=== PATIENT | male | born 1960 | race American Indian/Alaskan Native ===

== ENCOUNTER 2017-03-30 16:27 | Inpatient (IN) | payer MEDICARE, OTHER ==
[2017-03-30] MEDS ORDERED: NACL 0.9% 1000 ML 1,000 ML IV ONE ×2 (16:32→19:06)
[2017-03-30] MEDS ORDERED: ASPIRIN ONE (16:39)
--- NOTE | 2017-03-30 16:40 | Emergency Department Report ---
ED Chest Pain HPI - General Chief Complaint: Chest Pain Stated Complaint: ELEVATED HEART RATE Time Seen by Provider: 03/30/17 16:31 - History of Present Illness Initial Comments: 57-year-old male with no medical history severe with sudden onset tachycardia. 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 [place] his heart start to race. That point 911 was called and he had some chest tightness with his symptoms. [place] states feels okay although his chest tightness has continued. He remains tachycardic. EMS gave the patient 6 mg and 12 mg of adenosine without resolution of his tachycardia. -: Sudden Onset: during rest Pain Location: substernal Pain Radiation: none Severity: moderate Consistency: constant Improves With: nothing Worsens With: nothing re: denies: nausea, vomting, diaphoresis - Related Data Home Medications Medication Instructions Recorded Confirmed Last Taken Multivitamin/Ferrous Sulfate 18 mg PO DAILY 03/30/17 03/30/17 03/30/17 [One-Daily Yvcdk-Lbe-Ujnt Tab] Allergies Allergy/AdvReac Type Severity Reaction Status Date / Time No Known Allergies Allergy Unverified 07/19/16 10:25 Heart Score - HEART Score History: Moderately suspicious EKG: Non-specific Age: 45-65 Risk factors: 1-2 risk factors Troponin: < normal limit HEART Score: 4 ED Review of Systems ROS: Stated complaint: ELEVATED HEART RATE Other details as noted in HPI Comment: All other systems reviewed and negative Constitutional: denies: chills, fever Eyes: denies: eye pain, eye discharge, vision change ENT: denies: ear pain, throat pain Respiratory: denies: cough, shortness of breath, wheezing Cardiovascular: chest pain. denies: palpitations Endocrine: no symptoms reported Gastrointestinal: denies: abdominal pain, nausea, diarrhea Genitourinary: denies: urgency, dysuria Musculoskeletal: denies: back pain, joint swelling, arthralgia Skin: denies: rash, lesions Neurological: denies: headache, weakness, paresthesias Psychiatric: denies: anxiety, depression Hematological/Lymphatic: denies: easy bleeding, easy bruising ED Past Medical Hx - Past Medical History Previous Medical History?: No - Family History Family history: no significant - Medications Home Medications: Home Medications Medication Instructions Recorded Confirmed Last Taken Type Multivitamin/Ferrous Sulfate 18 mg PO DAILY 03/30/17 03/30/17 03/30/17 History [One-Daily Reakf-Fyl-Hchs Tab] ED Physical Exam - General General appearance: alert, in no apparent distress - Head Head exam: Present: atraumatic, normocephalic - Eye Eye exam: Present: normal appearance - ENT ENT exam: Present: mucous membranes moist - Neck Neck exam: Present: normal inspection - Respiratory Respiratory exam: Present: normal lung sounds bilaterally. Absent: respiratory distress - Cardiovascular Cardiovascular Exam: Present: normal rhythm, tachycardia. Absent: systolic murmur, diastolic murmur, rubs, gallop - GI/Abdominal GI/Abdominal exam: Present: soft, normal bowel sounds. Absent: distended, guarding, rebound - Rectal Rectal exam: Present: deferred - Extremities Exam Extremities exam: Present: normal inspection - Back Exam Back exam: Present: normal inspection - Neurological Exam Neurological exam: Present: alert, oriented X3 - Psychiatric Psychiatric exam: Present: normal affect, normal mood - Skin Skin exam: Present: warm, dry, intact, normal color. Absent: rash ED Course Vital Signs 03/30/17 03/30/17 03/30/17 16:24 16:26 16:28 Temperature Pulse Rate 159 H 158 H 158 H Respiratory 12 16 22 Rate Blood Pressure 112/75 112/75 Blood Pressure [Right] O2 Sat by Pulse Oximetry 03/30/17 03/30/17 03/30/17 16:29 16:30 16:31 Temperature 98.0 F Pulse Rate 158 H 160 H 160 H Respiratory 19 14 14 Rate Blood Pressure 112/75 118/73 108/67 Blood Pressure 112/75 [Right] O2 Sat by Pulse 97 Oximetry 03/30/17 03/30/17 03/30/17 16:32 16:34 16:36 Temperature Pulse Rate 158 H 156 H 159 H Respiratory 20 15 20 Rate Blood Pressure 108/67 108/67 108/67 Blood Pressure [Right] O2 Sat by Pulse Oximetry 03/30/17 03/30/17 03/30/17 16:38 16:42 16:44 Temperature Pulse Rate 159 H 120 H 102 H Respiratory 28 H 25 H 20 Rate Blood Pressure 108/67 108/67 108/67 Blood Pressure [Right] O2 Sat by Pulse Oximetry 03/30/17 03/30/17 03/30/17 16:45 16:46 16:48 Temperature 97.0 F L Pulse Rate 105 H 105 H 105 H Respiratory 13 15 17 Rate Blood Pressure 101/77 101/77 101/77 Blood Pressure [Right] O2 Sat by Pulse 97 Oximetry 03/30/17 03/30/17 03/30/17 16:50 16:52 16:54 Temperature Pulse Rate 103 H 103 H 102 H Respiratory 11 L 17 16 Rate Blood Pressure 101/77 101/77 101/77 Blood Pressure [Right] O2 Sat by Pulse Oximetry 03/30/17 03/30/17 03/30/17 16:56 16:58 17:00 Temperature Pulse Rate 103 H 100 H 103 H Respiratory 11 L 9 L 16 Rate Blood Pressure 101/77 101/77 101/77 Blood Pressure [Right] O2 Sat by Pulse Oximetry 03/30/17 03/30/17 03/30/17 17:02 17:04 17:06 Temperature Pulse Rate 100 H 103 H 99 H Respiratory 16 22 17 Rate Blood Pressure 108/74 108/74 108/74 Blood Pressure [Right] O2 Sat by Pulse Oximetry 03/30/17 03/30/17 03/30/17 17:08 17:10 17:15 Temperature Pulse Rate 100 H 105 H 103 H Respiratory 15 12 13 Rate Blood Pressure 108/74 108/74 Blood Pressure [Right] O2 Sat by Pulse Oximetry 03/30/17 03/30/17 03/30/17 17:23 17:25 17:27 Temperature Pulse Rate 106 H 109 H 102 H Respiratory 18 16 14 Rate Blood Pressure Blood Pressure [Right] O2 Sat by Pulse Oximetry 03/30/17 03/30/17 03/30/17 17:29 17:31 17:33 Temperature Pulse Rate 103 H 103 H 107 H Respiratory 23 18 14 Rate Blood Pressure 108/74 108/74 Blood Pressure [Right] O2 Sat by Pulse Oximetry ED Medical Decision Making - Lab Data Result diagrams: 03/30/17 17:40 03/30/17 17:40 Laboratory Results - last 24 hr 03/30/17 03/30/17 03/30/17 17:40 17:40 17:40 WBC 6.7 RBC 5.33 H Hgb 14.7 Hct 46.3 H MCV 87 MCH 28 MCHC 32 RDW 16.0 H Plt Count 208 Lymph % (Auto) 14.2 [place] % (Auto) 7.5 H Eos % (Auto) 0.7 Baso % (Auto) 0.4 Lymph # 0.9 L [place] # 0.5 Eos # 0.0 Baso # 0.0 Seg Neutrophils % 77.2 H Seg Neutrophils # 5.2 PT 15.8 H INR 1.20 H Sodium 136 L Potassium 4.7 Chloride 92.3 L Carbon Dioxide 16 L Anion Gap 32 BUN 10 Creatinine 1.1 Estimated GFR > 60 BUN/Creatinine Ratio 9.09 Glucose 498 H Calcium 8.7 Total Bilirubin 0.40 AST 30 ALT 23 Alkaline Phosphatase 96 Troponin T < 0.010 Total Protein 6.9 Albumin 4.1 Albumin/Globulin Ratio 1.5 - EKG Data -: EKG Interpreted by Me - EKG Data 03/30/17 16:42 Rate 160, axis subtle ST depression in his inferior lateral leads. 03/30/17 16:51 Second EKG sinus tach rate 120 normal axis normal intervals still with subtle lateral ST depression in leads V5 and V6. - Medical Decision Making Patient was 57-year-old male here with complaint of tachycardia and chest pain. Patient what appears to be SVT on arrival. Given 6 mg and 12 mg of adenosine without resolution of his symptoms by EMS. Here in the emergency department he was given 12 mg and then 18 mg of adenosine with resolution of his SVT. He is currently in a sinus rhythm. Plan admit the patient for cardiac workup given his chest pain with this episode. Stress test with Dr. Briscoe. Plan to admit the patient to the hospital for further chest pain workup. After being labs I noted that the patient was hyperglycemic. No history of diabetes. Plan to start fluids and will give him a dose of insulin. He has a fairly substantial and anion gap. This is likely a new diagnosis. Portions of this chart were dictated with dictation software. There may be dictation errors contained within this note. Critical Care Time: Yes Critical care attestation.: If time is entered above; I have spent that time in minutes in the direct care of this critically ill patient, excluding procedure time. ED Disposition Clinical Impression: Supraventricular tachycardia, Hyperglycemia, Chest pain Disposition: OP ADMIT IP TO THIS HOSP Is pt being admited?: Yes Condition: Serious Instructions: Chest Pain (ED)
[2017-03-30] MEDS ORDERED: ASPIRIN PO ONE (17:39)
[2017-03-30 17:58] LABS: Basophils % (Auto) 0.4 % (0.0-1.8); Eosinophils % (Auto) 0.7 % (0.0-4.3); Hematocrit 46.3 % (35.5-45.6); Hemoglobin 14.7 gm/dl (11.8-15.2); Mean Corpuscular HGB Conc 32 % (32-34); Mean Corpuscular Hemoglobin 28 pg (28-32); Mean Corpuscular Volume 87 fl (84-94); Platelet Count 208 K/mm3 (140-440); Red Blood Count 5.33 M/mm3 (3.65-5.03); White Blood Count 6.7 K/mm3 (4.5-11.0)
[2017-03-30 18:08] LABS: INR 1.2 (0.87-1.13)
[2017-03-30 18:25] LABS: Albumin 4.1 g/dL (3.9-5); Albumin/Globulin Ratio 1.5 %; Alkaline Phosphatase 96 units/L (35-129); BUN/Creatinine Ratio 9.09; Blood Urea Nitrogen 10 mg/dL (9-20); Calcium 8.7 mg/dL (8.4-10.2); Carbon Dioxide 16 mmol/L (22-30); Chloride 92.3 mmol/L (98-107); Glucose 498 mg/dL (75-100); Sodium 136 mmol/L (137-145); Total Protein 6.9 g/dL (6.3-8.2)
[2017-03-30 18:35] LABS: Alanine Aminotransferase 23 units/L (7-56); Anion Gap 32 mmol/L; Potassium 4.7 mmol/L (3.6-5.0)
--- NOTE | 2017-03-30 18:37 | Admit Criteria Form ---
Admission Criteria Documentation: TELEMETRY CARE Telemetry Admission Guidelines (Place 'X' for any and all applicable criteria): Admission to telemetry [A] may be indicated for ANY ONE of the following(1)(2)(3 )(4)(5): [X ]I. Cardiac disease, including ANY ONE of the following (9)(10)(11)(12)( 13): [ ]a) Postacute IL [ ]b) Low-risk patients with ST-segment elevation IL who have undergone successful percutaneous coronary intervention [ ]c) Unstable angina [ ]d) Suspected IL (until it is ruled out) [ ]e) Post cardiac surgery (first 48 to 72 hours unless complications occur) [X ]f) Acute arrhythmias (including significant tachycardia or bradycardia) [B] [ ]g) Firing of an implantable cardioverter defibrillator [C] [ ]h) Suspected pacemaker or implantable cardioverter defibrillator malfunction (10) [ ]i) New administration or adjustment of an antiarrhythmic drug [D ] [ ]j) Child admitted for acute congestive heart failure [ ]j) Long QT syndrome [ ]k) Advanced heart block (eg, second-degree Mobitz type II, third- degree heart block) [ ]l) Acute myocarditis or pericarditis [ ]m) Short-term (ambulatory or inpatient) monitoring after a cardiac procedure as indicated by ANY ONE of the following [E]: [ ]i) Electrophysiologic studies [ ]ii) Percutaneous coronary intervention with stent placement [ ]iii) Pacemaker placement with cardiac conduction defect [ ]iv) Implantable cardiac defibrillator placement [ ]II. Drug overdose or poisoning with substance that causes arrhythmias or QT prolongation (eg, phenothiazines, sympathomimetic agents, cyclic antidepressants, digitalis, antiarrhythmic drugs)(15) [ ]III. Short-term (ambulatory or inpatient) monitoring after therapeutic or diagnostic procedure requiring conscious sedation or anesthesia (eg, endoscopy, elective cardioversion) [ ]IV. Acute cerebrovascular even[F](18) [ ]V. Massive blood transfusion (eg, at least 10 units of packed red blood cells in 24 hours) [ ]. Variceal bleeding after endoscopy, sclerotherapy, or IV vasopressin [ ]VII. Uncorrected electrolyte abnormalities associated with an increased risk of dangerous arrhythmia [G]; examples include [ ]a) Hyperkalemia with attributable ECG changes [ ]b) Potassium greater than 6.5 mmol/L (mEq/L) in a patient without history of chronic renal disease [ ]c) Prolonged QT attributed to hypokalemia, hypomagnesemia, or hypocalcemia [ ]VIII.Unexplained syncope or other neurologic event suspected of being due to arrhythmia due to a finding that increases risk; examples include(19)(20)(21): [ ]a) High-risk ECG findings (eg, bifascicular block, bradycardia, abnormal QT interval, ventricular pre- excitation) [ ]b) History of previous syncope due to arrhythmia [ ]c) Abnormal ventricular function (eg, reduced ejection fraction ) [ ]d) Exertional or supine syncope [ ]e) Concerning syncope characteristics (eg, sudden loss of consciousness without prodrome) [ ]f) Family history of sudden [ ]g) Use of arrhythmogenic medication [ ]h) Suspected cardiac ischemia [ ]i) Known channelopathy (eg, long QT syndrome, Brugada syndrome, or catecholaminergic paroxysmal ventricular tachycardia) [ ]j) Known structural heart disease (eg, hypertrophic cardiomyopathy , severe valvular disease) [ ]k) Palpitations preceding syncope The original [employer] content created by [employer] has been revised. The portions of the content which have been revised are identified through the use of italic text or in bold, and [facility] has neither reviewed nor approved the modified material. All other unmodified content is copyright [employer]. Please see references footnoted in the original [employer] edition 2016 Admission Criteria Met: Yes
[2017-03-30] MEDS ORDERED: ZOFRAN IV PRN ×2 (18:41→18:44)
[2017-03-30] MEDS ORDERED: MILK OF MAGNESIA PO PRN ×2 (18:41→18:44)
[2017-03-30] MEDS ORDERED: DULCOLAX PR PRN ×2 (18:41→18:44)
[2017-03-30] MEDS ORDERED: TYLENOL PO PRN ×2 (18:41→18:44)
[2017-03-30] MEDS ORDERED: SODIUM CHLORIDE FLUSH SYRINGE 10 ML IV PRN (18:45)
--- NOTE | 2017-03-30 18:51 | History and Physical Report ---
History of Present Illness Chief complaint: My heart was beating fast and my chest was hurting History of present illness: 57 Yo Male with Obesity presents to ED for evaluation. Pt states that he experienced acute onset chest pain and palpitations today while at work. 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 Pt states that he also experienced acute onset pain in his chest. Pain 5/10, substernal, nonradiating, not worsened with exertion, or relieved with rest. Pt denies fever, chills, shortness of breath, back pain, syncope, productive cough, recent ill contacts. EMS notified, and upon arrival patient found to have SVT. EMS gave the patient 6 mg and 12 mg of adenosine with resolution of his tachycardia. Past History Past Medical History: other (obesity) Past Surgical History: No surgical history, Other (reviewed) Social history: , lives with family. denies: smoking, alcohol abuse, prescription drug abuse, IV drug use Family history: hypertension Medications and Allergies Allergies Allergy/AdvReac Type Severity Reaction Status Date / Time No Known Allergies Allergy Unverified 07/19/16 10:25 Home Medications Medication Instructions Recorded Confirmed Last Taken Type Multivitamin/Ferrous Sulfate 18 mg PO DAILY 03/30/17 03/30/17 03/30/17 History [One-Daily Pgqic-Mcs-Yocz Tab] Active Meds: Active Medications Acetaminophen (Tylenol) 650 mg PO Q4H PRN PRN Reason: Pain MILD(1-3)/Fever >100.5/ELENA Acetaminophen (Tylenol) 650 mg PO Q4H PRN PRN Reason: Pain MILD(1-3)/Fever >100.5/ELENA Bisacodyl (Dulcolax) 10 mg FL QDAY PRN PRN Reason: Constipation unrelieved by MOM Bisacodyl (Dulcolax) 10 mg FL QDAY PRN PRN Reason: Constipation unrelieved by MOM Magnesium Hydroxide (Milk Of Magnesia) 30 ml PO Q4H PRN PRN Reason: Constipation Magnesium Hydroxide (Milk Of Magnesia) 30 ml PO Q4H PRN PRN Reason: Constipation Ondansetron HCl (Zofran) 4 mg IV Q8H PRN PRN Reason: N/V unrelieved by Reglan Ondansetron HCl (Zofran) 4 mg IV Q8H PRN PRN Reason: N/V unrelieved by Reglan Sodium Chloride (Sodium Chloride Flush Syringe 10 Ml) 10 ml IV PRN PRN PRN Reason: LINE FLUSH Verapamil HCl (Calan) 40 mg PO Q8HR [facility] Review of Systems Constitutional: no weight loss, no weight gain, no fever, no chills Ears, nose, mouth and throat: no ear pain, no ear discharge, no tinnitis, no decreased hearing Cardiovascular: chest pain, palpitations, no syncope, no lightheadedness, no shortness of breath Respiratory: no cough, no cough with sputum, no excessive sputum, no hemoptysis Gastrointestinal: no abdominal pain, no nausea, no vomiting, no diarrhea Genitourinary Male: no hematuria, no flank pain, no discharge, no urinary frequency Rectal: no pain, no incontinence, no bleeding Musculoskeletal: no neck stiffness, no neck pain, no shooting arm pain, no arm numbness/tingling, no low back pain Integumentary: no rash, no pruritis, no redness, no sores Neurological: no transient paralysis, no paralysis, no weakness, no parathesias , no numbness Psychiatric: no anxiety, no memory loss, no change in sleep habits, no sleep disturbances, no insomnia Endocrine: no cold intolerance, no heat intolerance, no polyphagia, no excessive thirst Hematologic/Lymphatic: no easy bruising, no easy bleeding Allergic/Immunologic: no urticaria, no allergic rhinitis, no wheezing Exam - Constitutional Vitals: Temp Pulse Resp BP Pulse Ox 97.0 F L 107 H 14 108/74 97 03/30/17 16:45 03/30/17 17:33 03/30/17 17:33 03/30/17 17:33 03/30/17 16:45 General appearance: Present: mild distress, obese - EENT Eyes: Present: PERRL ENT: hearing intact, clear oral mucosa - Neck Neck: Present: supple, normal ROM - Respiratory Respiratory effort: normal Respiratory: bilateral: CTA - Cardiovascular Heart Sounds: Present: S1 & S2. Absent: rub, click - Extremities Extremities: pulses symmetrical, No edema Peripheral Pulses: within normal limits - Abdominal General gastrointestinal: Present: soft, non-tender, non-distended, normal bowel sounds Male genitourinary: Present: normal - Integumentary Integumentary: Present: clear, warm, dry - Musculoskeletal Musculoskeletal: gait normal, strength equal bilaterally - Psychiatric Psychiatric: appropriate mood/affect, intact judgment & insight - Neurologic Neurologic: CNII-XII intact, moves all extremities Results - Labs CBC & Chem 7: 03/30/17 17:40 03/30/17 Unknown Labs: Abnormal lab results 03/30/17 03/30/17 03/30/17 Range/Units 17:40 17:40 17:40 RBC 5.33 H (3.65-5.03) M/mm3 Hct 46.3 H (35.5-45.6) % RDW 16.0 H (13.2-15.2) % [place] % (Auto) 7.5 H (0.0-7.3) % Lymph # 0.9 L (1.2-5.4) K/mm3 Seg Neutrophils % 77.2 H (40.0-70.0) % PT 15.8 H (12.2-14.9) Sec. INR 1.20 H (0.87-1.13) Sodium 136 L (137-145) mmol/L Chloride 92.3 L (98-107) mmol/L Carbon Dioxide 16 L (22-30) mmol/L Glucose 498 H (75-100) mg/dL Assessment and Plan - Patient Problems (1) ACS (acute coronary syndrome) Current Visit: Yes Status: Acute Plan to address problem: Serial cardiac enzymes, ekg, telemetry, supportive care, cardiology consulted, echo, start verapamil (2) Hyponatremia syndrome Current Visit: Yes Status: Acute Plan to address problem: IVF replacement. (3) Obesity Current Visit: Yes Status: Acute Qualifiers: Obesity type: O Obesity classification: O Serious obesity comorbidity presence: S Body mass index: B (4) Supraventricular tachycardia Current Visit: Yes Status: Acute Plan to address problem: verapamil, cardiology consulted, supportive care, (5) DVT prophylaxis Current Visit: Yes Status: Acute
[2017-03-30 19:49] LABS: BUN/Creatinine Ratio 9.09; Blood Urea Nitrogen 10 mg/dL (9-20); Calcium 8.8 mg/dL (8.4-10.2); Carbon Dioxide 14 mmol/L (22-30); Chloride 93.7 mmol/L (98-107); Glucose 488 mg/dL (75-100); Sodium 138 mmol/L (137-145)
[2017-03-30 20:03] LABS: Anion Gap 35 mmol/L
[2017-03-30 20:04] LABS: Potassium 4.8 mmol/L (3.6-5.0)
[2017-03-30] MEDS: CALAN PO SCH (22:19)
[2017-03-30] MEDS ORDERED: D50W (25GM) Syringe IV PRN (22:30)
[2017-03-31] MEDS: CALAN PO SCH ×3 (05:14→22:35)
--- NOTE | 2017-03-31 07:39 | XRay Report ---
AP CHEST: HISTORY: chest pain AP view of the chest demonstrates a normal mediastinal and cardiac contour with clear lungs and normal bony and soft tissue structures. IMPRESSION: Unremarkable AP chest.
[2017-03-31] MEDS: NOVOLOG SUB-Q SCH ×4 (10:01→22:35)
[2017-03-31] MEDS ORDERED: Fluarix Quad 2017-2018(36 MOS+) IM ONE (12:00)
--- NOTE | 2017-03-31 13:40 | Consultation ---
History of Present Illness Consult date: 03/31/17 Consult reason: arrhythmia History of present illness: This is a 57yr old male who was brought in by EMS with palpitations. An ECG done shows atrial flutter with a rapid ventricular response. Patient was also found hyperglycemic with a serum glucose of 499 on initial labs. Patient denies prior medical history. Patient does not take any medication and does not have a primary care physician. Patient denies consumption of energy drinks, alcohol or substance abuse. He has since reverted to a stable sinus rhythm. Cardiac consultation requested. Past History Past Medical History: other (obesity) Past Surgical History: No surgical history, Other (reviewed) Social history: , lives with family. denies: smoking, alcohol abuse, prescription drug abuse, IV drug use Family history: hypertension Medications and Allergies Allergies Allergy/AdvReac Type Severity Reaction Status Date / Time No Known Allergies Allergy Unverified 07/19/16 10:25 Home Medications Medication Instructions Recorded Confirmed Last Taken Type Multivitamin/Ferrous Sulfate 18 mg PO DAILY 03/30/17 03/30/17 03/30/17 History [One-Daily Gqotp-Dll-Heqn Tab] Active Meds: Active Medications Acetaminophen (Tylenol) 650 mg PO Q4H PRN PRN Reason: Pain MILD(1-3)/Fever >100.5/ELENA Bisacodyl (Dulcolax) 10 mg RI QDAY PRN PRN Reason: Constipation unrelieved by MOM Dextrose (D50w (25gm)) 50 ml IV PRN PRN PRN Reason: Hypoglycemia Insulin Aspart (Novolog) 0 units SUB-Q ACHS ANI PRN Reason: Protocol Last Admin: 03/31/17 12:52 Dose: 4 units Insulin Human Isoph/Insulin Regular (Novolin 70/30) 15 unit SUB-Q BIDDIAB ANI Magnesium Hydroxide (Milk Of Magnesia) 30 ml PO Q4H PRN PRN Reason: Constipation Ondansetron HCl (Zofran) 4 mg IV Q8H PRN PRN Reason: N/V unrelieved by Reglan Sodium Chloride (Sodium Chloride Flush Syringe 10 Ml) 10 ml IV PRN PRN PRN Reason: LINE FLUSH Verapamil HCl (Calan) 40 mg PO Q8HR [facility] Last Admin: 03/31/17 05:14 Dose: Not Given Physical Examination Vital Signs Pulse Resp 159 H 12 03/30/17 16:24 08/23/17 16:24 General appearance: no acute distress HEENT: Positive: PERRL Neck: Positive: trachea midline Cardiac: Positive: Reg Rate and Rhythm Lungs: Positive: Decreased Breath Sounds Neuro: Positive: Grossly Intact Results 03/30/17 17:40 03/30/17 Unknown Lipids 03/30/17 Range/Units Unknown Triglycerides 163 H (2-149) mg/dL Cholesterol 165 (50-199) mg/dL HDL Cholesterol 41 (40-59) mg/dL Cholesterol/HDL Ratio 4.02 % Comprehensive Metabolic Panel 03/30/17 Range/Units Unknown Sodium 138 (137-145) mmol/L Potassium 4.8 (3.6-5.0) mmol/L Chloride 93.7 L (98-107) mmol/L Carbon Dioxide 14 L (22-30) mmol/L BUN 10 (9-20) mg/dL Creatinine 1.1 (0.8-1.5) mg/dL Glucose 488 H (75-100) mg/dL Calcium 8.8 (8.4-10.2) mg/dL Assessment and Plan Atrial flutter spontaneously reverted to a sinus rhythm on calan for suppression. normal TSH Diabetes Hbg A1c 17.2 EF 55-60% on echocardiogram. Plan: Pre-discharge thallium stress test for further cardiac evaluation. Management of his diabetes per medical team.
--- NOTE | 2017-03-31 14:47 | Progress Note ---
Assessment and Plan Assessment and plan: 57 Yo Male with Obesity presents to ED for evaluation. Pt states that he experienced acute onset chest pain and palpitations today while at work. 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 Pt states that he also experienced acute onset pain in his chest. Pain 5/10, substernal, nonradiating, not worsened with exertion, or relieved with rest. Pt denies fever, chills, shortness of breath, back pain, syncope, productive cough, recent ill contacts. EMS notified, and upon arrival patient found to have SVT. EMS gave the patient 6 mg and 12 mg of adenosine with resolution of his tachycardia. Atypical chest pain * Stress test today, pain likely as a result of SVT. * ASA, STATIN THERAPY SVT with possible Atrial flutter * Cardiology following * Asa NOTED ABOVE * Continue verapamil * CHADS 2 SCORE OF 1- ASA only New onset Diabetes mellitus * Diabetic education * insulin therapy * AIC >17 * Yearly eye and feet exam recommended METABOLIC SYNDROME * Weightloss modality discussed in detail OBESITY * NOTED ABOVE. DVT/GI PROPHY History Interval history: Patient seen and examined, in no acute distress. Denies any nausea, vomiting or diarrhea, still with mild chest discomfort Hospitalist Physical - Constitutional Vitals: Temp Pulse Resp BP Pulse Ox 98.9 F 68 18 108/70 98 03/31/17 13:52 03/31/17 13:52 03/31/17 13:52 03/31/17 13:52 03/31/17 13:52 General appearance: Present: no acute distress, well-nourished, obese - EENT Eyes: Present: PERRL, EOM intact ENT: hearing intact, clear oral mucosa - Neck Neck: Present: supple, normal ROM - Respiratory Respiratory effort: normal Respiratory: bilateral: CTA - Cardiovascular Rhythm: regular Heart Sounds: Present: S1 & S2 - Extremities Extremities: no ischemia, pulses intact, pulses symmetrical, No edema, normal temperature, normal color, Full ROM Peripheral Pulses: within normal limits - Abdominal General gastrointestinal: soft, non-tender, non-distended, normal bowel sounds - Integumentary Integumentary: Present: clear, warm, dry - Psychiatric Psychiatric: appropriate mood/affect, intact judgment & insight, memory intact, cooperative - Neurologic Neurologic: CNII-XII intact, moves all extremities - Allied Health Allied health notes reviewed: nursing Results - Labs CBC & Chem 7: 03/30/17 17:40 03/30/17 Unknown Labs: Laboratory Last Values WBC 6.7 K/mm3 (4.5-11.0) 03/30/17 17:40 RBC 5.33 M/mm3 (3.65-5.03) H 03/30/17 17:40 Hgb 14.7 gm/dl (11.8-15.2) 03/30/17 17:40 Hct 46.3 % (35.5-45.6) H 03/30/17 17:40 MCV 87 fl (84-94) 03/30/17 17:40 MCH 28 pg (28-32) 03/30/17 17:40 MCHC 32 % (32-34) 03/30/17 17:40 RDW 16.0 % (13.2-15.2) H 03/30/17 17:40 Plt Count 208 K/mm3 (140-440) 03/30/17 17:40 Lymph % (Auto) 14.2 % (13.4-35.0) 03/30/17 17:40 Reynolds % (Auto) 7.5 % (0.0-7.3) H 03/30/17 17:40 Eos % (Auto) 0.7 % (0.0-4.3) 03/30/17 17:40 Baso % (Auto) 0.4 % (0.0-1.8) 03/30/17 17:40 Lymph # 0.9 K/mm3 (1.2-5.4) L 03/30/17 17:40 Reynolds # 0.5 K/mm3 (0.0-0.8) 03/30/17 17:40 Eos # 0.0 K/mm3 (0.0-0.4) 03/30/17 17:40 Baso # 0.0 K/mm3 (0.0-0.1) 03/30/17 17:40 Seg Neutrophils % 77.2 % (40.0-70.0) H 03/30/17 17:40 Seg Neutrophils # 5.2 K/mm3 (1.8-7.7) 03/30/17 17:40 PT 15.8 Sec. (12.2-14.9) H 03/30/17 17:40 INR 1.20 (0.87-1.13) H 03/30/17 17:40 Sodium 138 mmol/L (137-145) 03/30/17 Unknown Potassium 4.8 mmol/L (3.6-5.0) 03/30/17 Unknown Chloride 93.7 mmol/L (98-107) L 03/30/17 Unknown Carbon Dioxide 14 mmol/L (22-30) L 03/30/17 Unknown Anion Gap 35 mmol/L 03/30/17 Unknown BUN 10 mg/dL (9-20) 03/30/17 Unknown Creatinine 1.1 mg/dL (0.8-1.5) 03/30/17 Unknown Estimated GFR > 60 ml/min 03/30/17 Unknown BUN/Creatinine Ratio 9.09 % 03/30/17 Unknown Glucose 488 mg/dL (75-100) H 03/30/17 Unknown POC Glucose 226 (70-105) H 03/31/17 09:42 Hemoglobin A1c 17.2 % (4-6) H 03/30/17 17:40 Calcium 8.8 mg/dL (8.4-10.2) 03/30/17 Unknown Magnesium 2.00 mg/dL (1.7-2.3) 03/31/17 13:43 Total Bilirubin 0.40 mg/dL (0.1-1.2) 03/30/17 17:40 AST 30 units/L (5-40) 03/30/17 17:40 ALT 23 units/L (7-56) 03/30/17 17:40 Alkaline Phosphatase 96 units/L (35-129) 03/30/17 17:40 Troponin T < 0.010 ng/mL (0.00-0.029) 03/31/17 00:27 Total Protein 6.9 g/dL (6.3-8.2) 03/30/17 17:40 Albumin 4.1 g/dL (3.9-5) 03/30/17 17:40 Albumin/Globulin Ratio 1.5 % 03/30/17 17:40 Triglycerides 163 mg/dL (2-149) H 03/30/17 Unknown Cholesterol 165 mg/dL (50-199) 03/30/17 Unknown LDL Cholesterol Direct 92 mg/dL (50-130) 03/30/17 Unknown HDL Cholesterol 41 mg/dL (40-59) 03/30/17 Unknown Cholesterol/HDL Ratio 4.02 % 03/30/17 Unknown TSH 1.920 mlU/mL (0.270-4.200) 03/31/17 13:43 - Imaging and Cardiology Chest x-ray: image reviewed (unremarkable)
[2017-04-01 04:52] VITALS: BP 97/68
[2017-04-01] MEDS: CALAN PO SCH (05:12)
[2017-04-01] MEDS: NOVOLOG SUB-Q SCH ×2 (07:56→12:16)
--- NOTE | 2017-04-01 09:20 | Discharge Summary ---
Providers - Providers Date of Admission: 03/30/17 18:41 Attending physician: DANUTA OH MD 03/30/17 Consult to Cardiac Rehabilitation [CONS] Routine Reason For Exam: Phase I 03/30/17 18:44 Consult to Physician [CONS] Routine Consulting Provider: SUSAN CHOI Reason For Exam: svt Place consult to:: cardiology Notified:: [email or web address] Was contact made?: Yes Time called:: 10:12 Primary care physician: [employer] Hospitalization Reason for admission: chest pain Condition: Stable Hospital course: 57 Yo Male with Obesity presents to ED for evaluation. Pt states that he experienced acute onset chest pain and palpitations today while at work. 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 Pt states that he also experienced acute onset pain in his chest. Pain 5/10, substernal, nonradiating, not worsened with exertion, or relieved with rest. Pt denies fever, chills, shortness of breath, back pain, syncope, productive cough, recent ill contacts. EMS notified, and upon arrival patient found to have SVT. EMS gave the patient 6 mg and 12 mg of adenosine with resolution of his tachycardia. Atypical chest pain * Stress test Was negative. * ASA started and to continue on discharge SVT with possible Atrial flutter * will follow with cardiolgy * Continue verapamil * CHADS 2 SCORE OF 1- ASA only New onset Diabetes mellitus * Diabetic education * insulin therapy on discharge with Novolin 70/30 * AIC >17 * Yearly eye and feet exam recommended and patient verbalized understanding. FOOT CARE DISCUSSED. METABOLIC SYNDROME * Weightloss modality discussed in detail WITH RECOMMENDATIONS ABOUT INCREASING ACTIVITY OBESITY * NOTED ABOVE. Disposition: DC-01 TO HOME OR SELFCARE Time spent for discharge: 35 mins Core Measure Documentation - Palliative Care Palliative Care/ Comfort Measures: Not Applicable - Core Measures Any of the following diagnoses?: none - VTE Discharge Requirements Deep Vein Thrombosis/Pulmonary Embolism Present on Admission: No Exam - Physical Exam Narrative exam: VITAL SIGNS: Reviewed. GENERAL: The patient appeared well nourished and normally developed, OBESE. Vital signs as documented. HEAD: No signs of head trauma. EYES: Pupils are equal. Extraocular motions intact. EARS: Hearing grossly intact. MOUTH: Oropharynx is normal. NECK: No adenopathy, no JVD. CHEST: Chest with clear breath sounds bilaterally. No wheezes, rales, or rhonchi. CARDIAC: Regular rate and rhythm. S1 and S2, without murmurs, gallops, or rubs. VASCULAR: No Edema. Peripheral pulses normal and equal in all extremities. ABDOMEN: Soft, without detectable tenderness. No sign of distention. No rebound or guarding, and no masses palpated. Bowel Sounds normal. MUSCULOSKELETAL: Good range of motion of all major joints. Extremities without clubbing, cyanosis or edema. NEUROLOGIC EXAM: Alert and oriented x 3. No focal sensory or strength deficits. Speech normal. Follows commands. PSYCHIATRIC: Mood normal. SKIN: No rash or lesions. - Constitutional Vitals: Temp Pulse Resp BP Pulse Ox 98.1 F 75 18 97/68 97 04/01/17 04:51 04/01/17 04:51 04/01/17 04:51 04/01/17 04:51 04/01/17 00:16 Plan Activity: advance as tolerated, fall precautions Diet: diabetic Special Instructions: record daily BP diary, record blood sugar diary Follow up with: ANNA FRANKLIN MD [Primary Care Provider] - 3-5 Days SUSAN CHOI MD [Staff Physician] - 7 Days Forms: Work/School Release Form Prescriptions: Aspirin [Aspirin TAB] 325 mg PO QDAY #30 tablet Insulin NPH/Regular [NovoLIN 70/30] 15 unit SUB-Q BIDDIAB 30 Days Verapamil [Calan] 40 mg PO Q8HR #90 tablet Other Discharge Orders: Glucometer (Amb) Location: Determined By Patient Glucometer supplies[Amb] Location: Determined By Patient
[2017-04-01] MEDS ORDERED: HALFPRIN EC PO SCH ×2 (10:00)
--- NOTE | 2017-04-01 10:24 | Progress Note ---
Assessment and Plan Atrial flutter spontaneously reverted to a sinus rhythm on calan for suppression. normal TSH Diabetes Hbg A1c 17.2 EF 55-60% on echocardiogram. MPI No ischemia Plan: Continue current management Follow-up as outpatient Subjective Date of service: 04/01/17 Principal diagnosis: Atrial flutter Interval history: Patient underwent stress test without complications Objective Vital Signs Temp Pulse Pulse Resp BP Pulse Ox 04/01/17 04:51 98.1 F 75 18 97/68 04/01/17 00:16 98.2 F 78 18 98/64 97 03/31/17 22:00 83 03/31/17 21:01 98.3 F 69 18 102/65 98 03/31/17 18:35 82 03/31/17 15:04 98.0 F 80 16 104/65 96 03/31/17 13:52 98.9 F 68 18 108/70 98 03/31/17 13:39 79 132/66 03/31/17 10:53 84 18 98 - Physical Examination HEENT: Positive: PERRL Neck: Positive: trachea midline Cardiac: Positive: Reg Rate and Rhythm Lungs: Positive: Normal Exam Neuro: Positive: Grossly Intact
[2017-04-01 11:02] LABS: Anion Gap 25 mmol/L; BUN/Creatinine Ratio 7.77; Blood Urea Nitrogen 7 mg/dL (9-20); Calcium 8.7 mg/dL (8.4-10.2); Carbon Dioxide 18 mmol/L (22-30); Chloride 96.4 mmol/L (98-107); Potassium 3.9 mmol/L (3.6-5.0); Sodium 135 mmol/L (137-145)
[2017-04-01 11:31] LABS: Glucose 321 mg/dL (75-100)
--- NOTE | 2017-04-02 00:07 | Treadmill Report ---
INDICATION: Chest pain. ORDERING PHYSICIAN: Britt Denis MD FINDINGS: There is no scintigraphic evidence of myocardial ischemia. The left ventricle is normal in size and systolic function. The left ventricular ejection fraction is measured at 63%. Normal wall motion and wall thickening is noted on gated imaging. CONCLUSION: Normal perfusion scan. JOB# [id number] RA/ALLIE
== END 2017-04-01 15:04 | disposition home or self-care (01) | DRG 313 ==
LOC: ED 16:27 → 4A 18:41
PROVIDERS: ADMIT Internal Medicine; ATTEND Internal Medicine
DX: R07.9 Chest pain, unspecified (principal); E87.1 Hypo-osmolality and hyponatremia; I24.9 Acute ischemic heart disease, unspecified; I47.1 Supraventricular tachycardia; I48.92 Unspecified atrial flutter; E11.65 Type 2 diabetes mellitus with hyperglycemia; E66.9 Obesity, unspecified; Z68.32 Body mass index [BMI] 32.0-32.9, adult; Z82.49 Family history of ischemic heart disease and other diseases of the circulatory system
CPT/HCPCS: 36415; 71010; 78452; 80048; 80053; 80061; 82962; 83036; 83735; 84443; 84484; 85025; 85610; 90686; 93005; 93010; 93017; 93306; 96361; 96374; 96375; A9502; J0153; J1815; J7030